=== PATIENT | female | born 1935 | race Caucasian/White ===

== ENCOUNTER 2018-08-05 23:31 | Inpatient (IN) ==
[2018-08-06] MEDS ORDERED: *HR* Promethazine 25 MG/ML VIAL IVP ONE (01:07)
[2018-08-06] MEDS ORDERED: Ondansetron 4 MG/2 ML VIAL IVP PRN (01:36)
[2018-08-06] MEDS ORDERED: Naloxone 0.4 MG/ML INJ IVP PRN ×2 (01:36→10:47)
[2018-08-06] MEDS ORDERED: 0.9 % Sodium Chloride 1,000 ML IVC SCH (01:45)
[2018-08-06] MEDS: Ketorolac 15 MG/ML VIAL IVP PRN ×2 (01:58→08:10)
[2018-08-06 04:56] LABS: Basophils % 0.1 %; Hematocrit 38.9 % (35.3-44.9); Hemoglobin 13.3 g/dL (11.5-15.4); Immature Granulocytes % 0.4 % (0-4); Lymphocytes # 0.3 K/mcL (0.6-4.6); Lymphocytes % 2.9 %; Mean Corpuscular HGB Conc 34.2 g/dL (31.6-35.5); Mean Corpuscular Hemoglobin 28.8 pg (28.0-33.3); Mean Corpuscular Volume 84.2 fL (83.0-100.0); Monocytes # 0.2 K/mcL (0.0-1.3); Monocytes % 2.1 %; Platelet Count 207 K/mcL (140-400); Red Blood Count 4.62 M/mcL (3.82-4.97); Red Cell Distribution Width 13.2 % (11.5-14.5); Segmented Neutrophils % 94.5 %
[2018-08-06 05:05] LABS: Albumin 3.7 g/dL (3.5-5.7); Albumin/Globulin Ratio 1.4 (1.1-2.2); Bilirubin,Total 1.3 mg/dL (0.3-1.0); Globulin 2.7 g/dL (2.4-3.5); Potassium 3.4 mEq/L (3.5-5.1); Total Protein 6.4 g/dL (6.4-8.9)
[2018-08-06 05:20] LABS: INR 1.3
[2018-08-06 05:22] LABS: Activated Partial Thrombo Time 36.5 Seconds (26.0-36.0)
[2018-08-06 05:30] LABS: Platelet Estimate Normal (Normal)
[2018-08-06] MEDS ORDERED: Acetaminophen 325 MG TABLET PO ONE (05:41)
--- NOTE | 2018-08-06 06:04 | Internal Med History&Physical ---
Date of Encounter: 08/06/18 Time of Encounter: 06:02 Internal Medicine - H&P: HPI Chief complaint: Left flank pain History of present illness: Ms. James is a pleasant 82 year old female with a past medical history of hypertension who initially presented to [facility] after developing a left flank pain earlier yesterday. Patient states that she was in her usual state of health, was getting her hair done when she suddenly developed left-sided flank pain described as sharp, 8 out of 10 in intensity, nonradiating, and constant. Patient was reports feeling feverish and developed several episodes of nausea and vomiting. She denies any frequency, urinary urgency or dysuria, or blood in her urine. On initial assessment [facility] patient was afebrile and hemodynamically stable. Initial laboratory results were notable for a elevated white blood cell count of 23.2 and a creatinine of 1.42. UA was obtained which was notable only for moderate leukocyte esterase. Patient was started on IV fluids and antibiotics. CT scan of the abdomen and pelvis without contrast showed progressive severe left hydronephrosis consistent with UPJ obstruction and severe perinephric edema consistent with obstructive uropathy. 3 mm nonobstructing right renal stone was noted. Patient was subsequently transferred to [place] for urological evaluation. On my assessment, patient was lying in bed in no acute distress. She was noted to be febrile with a temperature of 103.1. Otherwise hemodynamically stable. She was not complaining of any pain at the time. Past Med Surg Social Fam HX - Past Medical History Medical history: hypertension Psychiatric history: no psych history - Past Surgical History Surgical History: appendectomy - Social History Smoking Status: Never smoker Smokeless Tobacco Status: No Alcohol use: none Drug use: none - Additional Family History Additional family history: Son with history of nephrolithiasis nephrolithiasis Internal Medicine - H&P: Meds Lutein 2 PO DAILY 08/06/18 [History] Multivitamin [Daily Multiple Vitamin] 1 each PO DAILY 08/06/18 [History] Allergy/AdvReac Type Severity Reaction Status Date / Time Penicillins [PCN] Allergy Hives Verified 08/06/18 01:54 All Systems PM: A 10-system review of systems was performed and is negative for pertinent findings except as documented above in the HPI. - Constitutional Constitutional: no chills, no fever(s), no night sweats - EENT Eyes: no change in vision, no discharge, no pain, no photophobia Ears: no ear discharge, no ear pain, no tinnitus Nose, mouth and throat: no dysphagia, no nasal discharge, no neck pain, no sore throat - Cardiovascular Cardiovascular ROS IM: no chest pain, no diaphoresis, no dyspnea, no l ightheadedness, no palpitations, no syncope - Respiratory Respiratory: no cough, no dyspnea, no wheezing, no excessive phlegm production - Gastrointestinal Gastrointestinal: no abdominal pain, no diarrhea, no hematemesis, no hematochezia, no melena, no nausea, no vomiting - Genitourinary Genitourinary: no change in urinary stream, no dysuria, no flank pain, no hematuria - Musculoskeletal Musculoskeletal ROS IM: no numbness, no tingling - Integumentary Integumentary IM: no rash, no unusual bruising - Neurological Neurological ROS: no confusion, no convulsions, no focal weakness, no numbness, no tingling, no tremor(s) - Hematologic/Lymphatic Hematologic/Lymphatic: no easy bruising - Constitutional Vitals: Temp Pulse Resp BP Pulse Ox 103.1 F H 91 14 109/64 91 08/06/18 05:32 08/06/18 05:32 08/06/18 05:32 08/06/18 05:32 08/06/18 05:32 Exam: General: Alert and oriented 3 lying in bed in no acute distress Skin:Normal color, no rash, no lesions. HEENT:EOM, pupils equal, round and reactive. Cardiovascular:Normal S1 & S2, no rubs, murmurs or gallops. No JVD. Pulse regular. Lungs:Normal breath sounds, no wheezes or crackles. Abdomen:Soft, non-tender, no rigidity. Extremities:No deformity, no edema or tenderness, no joint swelling or clubbing. Neurological:Normal cognition and motor skills. Pulses:Carotid and radial pulses normal +2. Rest of the physical exam is non contributory Internal Med - H&P Results - Labs CBC & Chem 7: 08/06/18 04:19 08/06/18 04:19 Labs: Short CBC 08/06/18 Range/Units 04:19 WBC 11.6 H (4.3-11.1) K/mcL Hgb 13.3 (11.5-15.4) g/dL Hct 38.9 (35.3-44.9) % Plt Count 207 (140-400) K/mcL Neutrophils # 11.0 H (1.6-8.9) K/mcL BMP 08/06/18 04:19 Sodium 135 L Potassium 3.4 L Chloride 102 Carbon Dioxide 19 L BUN 25 H Creatinine 1.45 H Glucose 114 H Calcium 9.0 Liver Function 08/06/18 Range/Units 04:19 Total Bilirubin 1.3 H (0.3-1.0) mg/dL AST 27 (13-39) Units/L ALT 24 (7-52) Units/L Alkaline Phosphatase 109 H (34-104) Units/L Albumin 3.7 (3.5-5.7) g/dL - Assessment and Plan (1) Hydronephrosis Current Visit: Yes Status: Acute Assessment and plan: Patient presents with left-sided sharp pain associated with fever, nausea and vo miting. Found to have an elevated white blood cell count of 23. CT scan of the abdomen/pelvis showed progressive severe left hydronephrosis consistent with UPJ obstruction. There is severe left perinephric edema consistent with obstructive uropathy forniceal rupture cannot be excluded. Creatinine 1.42. Unclear what patient's baseline is as we have no previous records. 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 -Follow up urology recommendations (3) Sepsis Current Visit: Yes Status: Acute Assessment and plan: Patient presents with 3 of 4 sirs criteria. Patient otherwise hemodynamically stable. -Continue with supportive fluids -Continue antibiotics -Follow blood cultures Qualifiers: Sepsis type: sepsis due to unspecified organism Qualified Code(s): A41.9 - Sepsis, unspecified organism (4) Elevated serum creatinine Current Visit: Yes Status: Acute Assessment and plan: Elevated serum creatinine of 1.45. No previous records to determine patient's baseline. Possibly secondary to obstructive uropathy as noted above. -Continue IV fluids -Follow up urology recommendations (5) Hypertension Current Visit: Yes Status: Acute Assessment and plan: Hypertension. Blood pressure soft. We will hold any antihypertensives for now. Qualifiers: Hypertension type: essential hypertension Qualified Code(s): I10 - Essential (primary) hypertension (6) DVT prophylaxis Current Visit: Yes Status: Acute - Time Spent With Patient Total time spent is greater than 50% in coordination of care (as documented) at patient's floor/unit and/or counseling patient:
--- NOTE | 2018-08-06 07:56 | Urology - Consult Note ---
Date of Encounter: 08/06/18 Time of Encounter: 07:54 - Assessment and Plan (1) Hydronephrosis Current Visit: Yes Status: Acute Assessment and plan: 82-year-old woman with a left ureteropelvic junction obstruction. She has been admitted for IV antibiotics. I reviewed her films today. Recommend proceeding with a cystoscopy and left ureteral stent placement. She was informed of the risks of the procedure including but not limited to bleeding, infection, injury to other structures, need for further procedures, stent irritation, ureteral perforation, need for nephrostomy tube, need for open repair, risks unforeseen, and the risk of anesthesia. She is willing to proceed. Qualifiers: Hydronephrosis type: with ureteropelvic junction obstruction Qualified Code(s): Q62.11 - Congenital occlusion of ureteropelvic junction (2) Nephrolithiasis Current Visit: Yes Status: Acute Assessment and plan: She has a small right renal stone. This does not require surgery at this time as it is not obstructing. We will monitor for now. (3) Obstructive uropathy Current Visit: Yes Status: Acute (4) Sepsis Current Visit: Yes Status: Acute Assessment and plan: She has developed a fever. We will continue her on IV antibiotics. We will maximally drain her kidney with a stent. Appreciate internal medicine support. Qualifiers: Sepsis type: sepsis due to unspecified organism Qualified Code(s): A41.9 - Sepsis, unspecified organism Urology CN:HPI Consult date: 08/06/18 Reason for consult Urology: Hydronephrosis Requesting physician: Richard Barahona History of present illness: 82-year-old woman presents with concern for fevers, chills, and left flank pain. She began to develop left flank pain yesterday. The pain was sharp and severe. It was located left side and radiated to the groin. She came to an outside emergency department. A CT scan was obtained which showed concern for left hydronephrosis. There is no evidence of stone on the left side. She does have a small right renal stone. She had a low grade temperature at the outside hospital and was transferred to [facility]. She had a temperature upon presentation [place], but I was not notified until this morning of her ongoing fever. This morning, she is still having some chills. A Trujillo catheter is in place. I reviewed her CT scan and outside hospital records. Past Med Surg Social Fam HX - Past Medical History Medical history: hypertension Psychiatric history: no psych history - Past Surgical History Surgical History: appendectomy - Social History Smoking Status: Never smoker Smokeless Tobacco Status: No Alcohol use: none Drug use: none - Family History Son Hx Family Genitourinary Disorders: Yes (Kidney stones) Medications and Allergies Lutein 2 PO DAILY 08/06/18 [History] Multivitamin [Daily Multiple Vitamin] 1 each PO DAILY 08/06/18 [History] Allergy/AdvReac Type Severity Reaction Status Date / Time Penicillins [PCN] Allergy Hives Verified 08/06/18 01:54 Review of Systems - Constitutional chills, fever(s) - EENT Nose, mouth and throat: no dizziness - Cardiovascular no chest pain - Respiratory no dyspnea - Gastrointestinal nausea, no vomiting - Genitourinary Genitourinary: flank pain, no hematuria - Musculoskeletal no back pain - Integumentary no erythema, no rash - Neurological no weakness - Psychiatric no suicidal ideation - Hematologic/Lymphatic no easy bleeding - Allergic/Immunologic no wheezing Exam Initial Vital Signs Temp Pulse Resp BP Pulse Ox 98.4 F 80 15 153/72 94 08/06/18 01:06 08/06/18 01:06 08/06/18 01:06 08/06/18 01:06 08/06/18 01:06 - General physical appearance Present: well developed, well nourished, no distress - Eyes Absent: icteric - ENT Present: normal nares - Neck Present: trachea midline - Respiratory Present: normal respiratory effort - Cardiovascular Cardiovascular exam IM: RRR - Abdomen Abdomen: Present: soft, tender (Mild left flank tenderness) - Integumentary Present: no rash - Neurologic Present: normal coordination - Musculoskeletal Present: other (Normal posture) Urology Results - Labs 08/06/18 04:19 08/06/18 04:19 Abnormal lab results WBC 11.6 K/mcL (4.3-11.1) H 08/06/18 04:19 Neutrophils # 11.0 K/mcL (1.6-8.9) H 08/06/18 04:19 Lymphocytes # 0.3 K/mcL (0.6-4.6) L 08/06/18 04:19 PT 15.0 Seconds (9.4-12.1) H 08/06/18 04:19 APTT 36.5 Seconds (26.0-36.0) H 08/06/18 04:19 Sodium 135 mEq/L (136-145) L 08/06/18 04:19 Potassium 3.4 mEq/L (3.5-5.1) L 08/06/18 04:19 Carbon Dioxide 19 mEq/L (23-29) L 08/06/18 04:19 BUN 25 mg/dL (8-23) H 08/06/18 04:19 Creatinine 1.45 mg/dL (0.60-1.20) H 08/06/18 04:19 Est GFR ( Amer) 42 (> 60) L 08/06/18 04:19 Est GFR (Non-Af Amer) 34 (> 60) L 08/06/18 04:19 Glucose 114 mg/dL (70-105) H 08/06/18 04:19 Total Bilirubin 1.3 mg/dL (0.3-1.0) H 08/06/18 04:19 Alkaline Phosphatase 109 Units/L (34-104) H 08/06/18 04:19 Diabetes panel 08/06/18 Range/Units 04:19 Sodium 135 L (136-145) mEq/L Potassium 3.4 L (3.5-5.1) mEq/L Chloride 102 (98-107) mEq/L Carbon Dioxide 19 L (23-29) mEq/L BUN 25 H (8-23) mg/dL Creatinine 1.45 H (0.60-1.20) mg/dL Glucose 114 H (70-105) mg/dL Calcium 9.0 (8.6-10.3) mg/dL AST 27 (13-39) Units/L ALT 24 (7-52) Units/L Alkaline Phosphatase 109 H (34-104) Units/L Albumin 3.7 (3.5-5.7) g/dL Calcium panel 08/06/18 Range/Units 04:19 Calcium 9.0 (8.6-10.3) mg/dL Albumin 3.7 (3.5-5.7) g/dL Pituitary panel 08/06/18 Range/Units 04:19 Sodium 135 L (136-145) mEq/L Potassium 3.4 L (3.5-5.1) mEq/L Chloride 102 (98-107) mEq/L Carbon Dioxide 19 L (23-29) mEq/L BUN 25 H (8-23) mg/dL Creatinine 1.45 H (0.60-1.20) mg/dL Glucose 114 H (70-105) mg/dL Calcium 9.0 (8.6-10.3) mg/dL Adrenal panel 08/06/18 Range/Units 04:19 Sodium 135 L (136-145) mEq/L Potassium 3.4 L (3.5-5.1) mEq/L Chloride 102 (98-107) mEq/L Carbon Dioxide 19 L (23-29) mEq/L BUN 25 H (8-23) mg/dL Creatinine 1.45 H (0.60-1.20) mg/dL Glucose 114 H (70-105) mg/dL Calcium 9.0 (8.6-10.3) mg/dL Total Bilirubin 1.3 H (0.3-1.0) mg/dL AST 27 (13-39) Units/L ALT 24 (7-52) Units/L Alkaline Phosphatase 109 H (34-104) Units/L Albumin 3.7 (3.5-5.7) g/dL All other labs normal. - Imaging CT scan - abdomen: report reviewed, image reviewed CT scan - pelvis: report reviewed, image reviewed Consult Discharge Plan - Plan Referrals: Lino Green DO [Primary Care Provider] -
[2018-08-06] MEDS ORDERED: Dextrose Gel 15 GM/37.5 ML TUBE PO PRN ×4 (08:27→10:47)
[2018-08-06] MEDS ORDERED: D5% in Water 1,000 ML IVC PRN ×2 (08:27→10:47)
[2018-08-06] MEDS ORDERED: *HR* Dextrose 50 % in Water (Syg) 50 ML SYRINGE IVP PRN ×2 (08:27→10:47)
[2018-08-06] MEDS ORDERED: Isovue-300 50 ML VIAL ONE (08:28)
[2018-08-06] MEDS ORDERED: D5% in Lactated Ringers 1,000 ML IVC SCH (08:30)
--- NOTE | 2018-08-06 08:54 | Anesthesia Evaluation PreOp ---
Date of Encounter: 08/06/18 Time of Encounter: 08:51 - Past History Planned Operation: CYSTO, LEFT URETERIC TONE Cardiac History: HTN Pulmonary History: Denies Any Significant HX [employer] History: Denies Any Significant HX Other Medical History: Renal (Right renal stones, left hydronephrosis, MATTHEW), Oth er (SEPSIS, COMPENSATED SEPTIC SHOCK) Anesthesia History: No Prior Anesthetic Complications, Past Anesthesia Alcohol Use: none Drug use: none Medications and Allergies Lutein 2 PO DAILY 08/06/18 [History] Multivitamin [Daily Multiple Vitamin] 1 each PO DAILY 08/06/18 [History] Allergy/AdvReac Type Severity Reaction Status Date / Time Penicillins [PCN] Allergy Hives Verified 08/06/18 01:54 - Meds/Allergy Pre-op Review Medications Reviewed: Yes Allergies Reviewed: Yes Anesthesia Results - Labs 08/06/18 04:19 08/06/18 04:19 Laboratory Tests 08/06/18 08/06/18 04:19 06:08 Est GFR (Non-Af Amer) 34 L Lactic Acid 2.1 Total Bilirubin 1.3 H Anesthesia Exam Vital Signs/O2 Sat/Glucose, Most Recent Temp Pulse Resp BP Pulse Ox 98.7 F 92 16 94/57 92 08/06/18 08:23 08/06/18 08:23 08/06/18 06:25 08/06/18 06:25 08/06/18 08:23 Blood Glucose* 123 Weight: 78 KG - BMI 34 NPO (# of Hours): 8 - HEENT Mallampati: I Teeth: Normal Oral Opening: Greater than 3 - Cardiac Rhythm: Regular - Pulmonary Breath Sounds: bilateral Clear Respiratory Effort: Symmetrical Anesthesia Assess/Plan ASA Score: 3, E Anesthetic Plan: General Monitoring Plan: Standard Monitors Recovery Plan: PACU
[2018-08-06] MEDS ORDERED: cefTRIAXone 1,000 MG in Water for inj. (sterile) 20 ML 10 ML IVPB ONE (09:00)
[2018-08-06] MEDS ORDERED: *HR* Vasopressin 20 UNIT/ML VIAL ONE (09:02)
[2018-08-06] MEDS ORDERED: *HR* Succinylcholine 200 MG/10 ML VIAL IVP ONE (09:11)
[2018-08-06] MEDS ORDERED: Ondansetron 4 MG/2 ML VIAL ONE (09:30)
[2018-08-06] MEDS ORDERED: Lidocaine -MPF 2% 2 ML VIAL ONE (09:30)
[2018-08-06] MEDS ORDERED: *HR* FentaNYL (PF) 100 MCG/2 ML VIAL ONE (09:30)
[2018-08-06] MEDS ORDERED: *HR* Propofol 200 MG/20 ML VIAL IVP ONE (09:30)
[2018-08-06] MEDS ORDERED: Dexamethasone 4 MG/ML VIAL ONE (09:30)
--- NOTE | 2018-08-06 09:47 | Operative Note ---
Date of procedure: 08/06/18 Pre-op diagnosis: Left ureteropelvic junction obstruction, urinary tract infection, sepsis Post-op diagnosis: same Procedure: Cystoscopy, left retrograde program, left ureteral stent placement Implants: 6-[place] by 24 cm double-J stent Complications: None Anesthesia: GETA Surgeon: Juan Daniel Isaac Was there an assistant center director present: No Estimated blood loss (cc): 0 Specimen: none Condition: stable Disposition: PACU Procedure in Detail: Indications: Janeth is an 82-year-old woman who has a history of left flank pain and fever. She had a CT which showed left hydronephrosis consistent with a left ureteropelvic junction obstruction. She elected to undergo a cystoscopy and left ureteral stent placement. She was aware of the risks of the procedure including but not limited to bleeding, infection, injury to other structures, need for further procedures, stent irritation, need for nephrostomy tube, need for open repair, risks otherwise unforeseen, and the risk of anesthesia. She is willing to proceed. Procedure in Detail: After informed consent was obtained the patient was brought back to the operating room and placed in supine position. A time out was performed. General anesthesia was administered and a laryngeal mask airway was placed. She was then placed in the lithotomy position. She was prepped and draped in the usual sterile fashion. Cystoscopy was performed. The anterior urethra was normal. There was no evidence of bladder tumors. The ureteral orifices were in the normal orthotopic position. There was no duplication of the ureteral orifices. The open-ended catheter was placed in the left ureteral orifice. A retrograde pyelogram was performed. This showed narrowing at the ureteropelvic junction with a very distended left renal pelvis. There was no filling defect noted in the ureter. A Zip wire was placed in the ureteral catheter. The wire was then brought up into the kidney under fluoroscopic guidance. A 6 [place] by 26cm JJ stent was then placed. The dangle strings were removed. The bladder was drained with a Trujillo catheter. Good curls were seen in the kidney and the bladder. The patient was then awakened from general anesthesia and brought to recovery room in good condition. All sponge, needle, and instrument counts were correct.
[2018-08-06] MEDS ORDERED: *HR* OxyCODONE Immed Rel 5 MG TABLET PO PRN (09:55)
[2018-08-06] MEDS ORDERED: Ondansetron 4 MG/2 ML VIAL IVP ONE (09:55)
[2018-08-06] MEDS ORDERED: *HR* Promethazine 25 MG/ML VIAL IVP PRN (09:55)
[2018-08-06] MEDS ORDERED: *HR* HYDROmorphone (PF) 1 MG/ML SYRINGE IVP PRN (09:55)
[2018-08-06] MEDS ORDERED: Acetaminophen IV 1,000 MG/100 ML INFUS..BTL IVPB ONE (09:55)
[2018-08-06] MEDS ORDERED: *HR* Meperidine 25 MG/ML SYRINGE IVP PRN (09:55)
[2018-08-06] MEDS ORDERED: *HR* HYDROcodone/Acet 5/325 mg TABLET PO PRN (10:47)
[2018-08-06] MEDS ORDERED: Acetaminophen 325 MG TABLET PO PRN (10:47)
[2018-08-06] MEDS ORDERED: Ketorolac 15 MG/ML VIAL IVP PRN (10:47)
[2018-08-06] MEDS ORDERED: Insulin LISPRO 300 UNITS/3 ML VIAL SQ SCH ×2 (12:00)
--- NOTE | 2018-08-06 15:43 | Event Note ---
Date of Encounter: 08/06/18 Time of Encounter: 15:42 I have seen and evaluated the patient bedside. Patient admitted for hydronephrosis status post Cystoscopy, left retrograde program, left ureteral stent placement. We will continue IV fluids and IV antibiotics. We will continue to follow.
--- NOTE | 2018-08-06 18:11 | Anesthesia Evaluation Post Op ---
Date of Encounter: 08/06/18 Time of Encounter: 11:19 - Discharge PostOp Status: Transfer Patient to floor (Patient's vital signs have been reviewed. Patient is stable postoperatively and has adequately recovered from anesthesia. Patient is determined to have stable airway patency and respiratory function including respiratory rate and oxygen saturation. Patient has a stable heart rate, blood pressure and adequate hydration. Patients mental status is acceptable. Patients temperature is appropriate. Pain and nausea are adequately controlled.)
[2018-08-06] MEDS: D5% in Lactated Ringers 1,000 ML IVC SCH (21:44)
[2018-08-07 04:01] LABS: Hematocrit 34.8 % (35.3-44.9); Hemoglobin 11.9 g/dL (11.5-15.4); Immature Platelets 6.1 % (1.1-6.1); Mean Corpuscular HGB Conc 34.2 g/dL (31.6-35.5); Mean Corpuscular Volume 84.9 fL (83.0-100.0); Red Blood Count 4.1 M/mcL (3.82-4.97)
[2018-08-07 04:11] LABS: Calcium 8.6 mg/dL (8.6-10.3); Potassium 3.4 mEq/L (3.5-5.1)
[2018-08-07 05:15] LABS: Basophils % 0.2 %
[2018-08-07 05:16] LABS: Basophils # 0.1 K/mcL (0.0-0.2); Hematocrit 33.9 % (35.3-44.9); Hemoglobin 11.7 g/dL (11.5-15.4); Immature Granulocytes % 3.3 % (0-4); Lymphocytes # 1.4 K/mcL (0.6-4.6); Lymphocytes % 4.6 %; Mean Corpuscular HGB Conc 34.5 g/dL (31.6-35.5); Mean Corpuscular Hemoglobin 28.5 pg (28.0-33.3); Mean Corpuscular Volume 82.5 fL (83.0-100.0); Mean Platelet Volume 10.5 fL (9.4-12.4); Monocytes # 1.2 K/mcL (0.0-1.3); Monocytes % 3.9 %; Neutrophils # 26.3 K/mcL (1.6-8.9); Platelet Count 171 K/mcL (140-400); Red Blood Count 4.11 M/mcL (3.82-4.97); Red Cell Distribution Width 14.1 % (11.5-14.5)
[2018-08-07 05:32] LABS: Albumin/Globulin Ratio 1.2 (1.1-2.2); Bilirubin,Total 0.4 mg/dL (0.3-1.0); Calcium 8.5 mg/dL (8.6-10.3); Globulin 2.6 g/dL (2.4-3.5); Potassium 3.4 mEq/L (3.5-5.1); Total Protein 5.6 g/dL (6.4-8.9)
[2018-08-07 05:38] LABS: Platelet Estimate Normal (Normal)
[2018-08-07 05:39] LABS: Reactive Lymphocytes Present (Not Present)
[2018-08-07] MEDS ORDERED: cefTRIAXone 1,000 MG in Water for inj. (sterile) 20 ML 10 ML IVP SCH (09:00)
--- NOTE | 2018-08-07 09:17 | Urology Progress Note ---
Date of Encounter: 08/07/18 Time of Encounter: 09:16 - Assessment and Plan (1) Hydronephrosis Current Visit: Yes Status: Acute Assessment and plan: Postop day #1 status post cystoscopy and left renal stent placement. She has a left ureteral pelvic junction obstruction. Plan #1: Continue Trujillo catheter today. #2: Appreciate internal medicine support. Continue broad-spectrum antibiotics until urine and blood cultures return. #3: Continue inpatient stay. Qualifiers: Hydronephrosis type: with ureteropelvic junction obstruction Qualified Code(s): Q62.11 - Congenital occlusion of ureteropelvic junction (2) Nephrolithiasis Current Visit: Yes Status: Acute (3) Obstructive uropathy Current Visit: Yes Status: Acute (4) Sepsis Current Visit: Yes Status: Acute Qualifiers: Sepsis type: sepsis due to unspecified organism Qualified Code(s): A41.9 - Sepsis, unspecified organism Progress Note Narrative: Postop day #1 status post cystoscopy and left ureteral stent placement. She feels better today. Blood cultures are growing out gram-positive rods and gram-negative rods. She has been afebrile overnight. Heart rate and blood pressure are stable. Her urine is light pink. Objective Initial Vital Signs Temp Pulse Resp BP Pulse Ox 98.4 F 80 15 153/72 94 08/06/18 01:06 08/06/18 01:06 08/06/18 01:06 08/06/18 01:06 08/06/18 01:06 - General physical appearance Present: well developed, well nourished, no distress - Respiratory Present: normal respiratory effort - Genitourinary Urine Appearance: Present: Clear (Clear to light pink) - Labs 08/07/18 05:02 08/07/18 05:02 Diabetes panel 08/07/18 08/07/18 Range/Units 03:25 05:02 Sodium 136 135 L (136-145) mEq/L Potassium 3.4 L 3.4 L (3.5-5.1) mEq/L Chloride 105 106 (98-107) mEq/L Carbon Dioxide 22 L 22 L (23-29) mEq/L BUN 40 H 39 H (8-23) mg/dL Creatinine 1.73 H 1.65 H (0.60-1.20) mg/dL Glucose 131 H 128 H (70-105) mg/dL Calcium 8.6 8.5 L (8.6-10.3) mg/dL AST 32 (13-39) Units/L ALT 23 (7-52) Units/L Alkaline Phosphatase 57 (34-104) Units/L Albumin 3.0 L (3.5-5.7) g/dL Calcium panel 08/07/18 08/07/18 Range/Units 03:25 05:02 Calcium 8.6 8.5 L (8.6-10.3) mg/dL Albumin 3.0 L (3.5-5.7) g/dL Pituitary panel 08/07/18 08/07/18 Range/Units 03:25 05:02 Sodium 136 135 L (136-145) mEq/L Potassium 3.4 L 3.4 L (3.5-5.1) mEq/L Chloride 105 106 (98-107) mEq/L Carbon Dioxide 22 L 22 L (23-29) mEq/L BUN 40 H 39 H (8-23) mg/dL Creatinine 1.73 H 1.65 H (0.60-1.20) mg/dL Glucose 131 H 128 H (70-105) mg/dL Calcium 8.6 8.5 L (8.6-10.3) mg/dL Adrenal panel 08/07/18 08/07/18 Range/Units 03:25 05:02 Sodium 136 135 L (136-145) mEq/L Potassium 3.4 L 3.4 L (3.5-5.1) mEq/L Chloride 105 106 (98-107) mEq/L Carbon Dioxide 22 L 22 L (23-29) mEq/L BUN 40 H 39 H (8-23) mg/dL Creatinine 1.73 H 1.65 H (0.60-1.20) mg/dL Glucose 131 H 128 H (70-105) mg/dL Calcium 8.6 8.5 L (8.6-10.3) mg/dL Total Bilirubin 0.4 (0.3-1.0) mg/dL AST 32 (13-39) Units/L ALT 23 (7-52) Units/L Alkaline Phosphatase 57 (34-104) Units/L Albumin 3.0 L (3.5-5.7) g/dL Consult Discharge Plan - Plan Referrals: Lino Green DO [Primary Care Provider] -
[2018-08-07 10:25] LABS: Acinetobacter baumannii by PCR Not Detected (Not Detect); Enterococcus by PCR Not Detected (Not Detect); Staphylococcus aureus by PCR Not Detected (Not Detect); Staphylococcus by PCR Not Detected (Not Detect); Streptococcus agalactiae(B)PCR Not Detected (Not Detect); Streptococcus by PCR Not Detected (Not Detect); Streptococcus pneumoniae PCR Not Detected (Not Detect); Streptococcus pyogenes (A) PCR Not Detected (Not Detect); blaKPC Carbapenem-Resist Gene Not Detected (Not Detect)
[2018-08-07 10:26] LABS: Candida albicans by PCR Not Detected (Not Detect); Candida glabrata by PCR Not Detected (Not Detect); Candida krusei by PCR Not Detected (Not Detect); Candida parapsilosis by PCR Not Detected (Not Detect); Candida tropicalis by PCR Not Detected (Not Detect); Enterobacter cloacae Cmplx PCR Not Detected (Not Detect); Enterobacteriaceae by PCR DETECTED (Not Detect); Escherichia coli by PCR DETECTED (Not Detect); Klebsiella oxytoca by PCR Not Detected (Not Detect); Klebsiella pneumoniae by PCR Not Detected (Not Detect); Proteus by PCR Not Detected (Not Detect); Pseudomonas aeruginosa by PCR Not Detected (Not Detect); Serratia marcescens by PCR Not Detected (Not Detect)
[2018-08-07] MEDS: D5% in Lactated Ringers 1,000 ML IVC SCH ×2 (13:04→22:11)
[2018-08-07] MEDS: Ondansetron 4 MG/2 ML VIAL IVP PRN (21:26)
[2018-08-08] MEDS: D5% in Lactated Ringers 1,000 ML IVC SCH ×6 (02:45→22:41)
[2018-08-08] MEDS ORDERED: *HR* Promethazine 25 MG/ML VIAL IVP PRN (04:31)
--- NOTE | 2018-08-08 04:49 | Event Note ---
Date of Encounter: 08/08/18 Time of Encounter: 04:40 Alerted by OLI Gillespieconstruction project coordinator Nurse that pts. lab result for microbiology was incorrect. Pt. was placed on vancomycin IVPB yesterday based on lab results stating pt. had gram positive rods. Correct lab results are gram negative rods (E. coli). Vancomycin DCd and Rocephin IVPB increased to 2,000 mg Q12HR. D/t pts. current renal dysfunction, verified dosing w/Pharmacy (Rocephin not renally dosed). Dosing increased d/t pts. report of feeling much worse and WBC increasing from 11.6 to 29.9. IVP Phenergan added for nausea d/t Zofran not working. Nurse instructed to continue to monitor pt. very closely and notify me immediately of any adverse changes.
[2018-08-08 05:27] LABS: Basophils % 0.1 %; Eosinophils % 0.1 %; Hematocrit 35.3 % (35.3-44.9); Hemoglobin 12.1 g/dL (11.5-15.4); Immature Granulocytes % 2.2 % (0-4); Lymphocytes % 4.8 %; Mean Corpuscular HGB Conc 34.3 g/dL (31.6-35.5); Mean Corpuscular Hemoglobin 28.9 pg (28.0-33.3); Mean Corpuscular Volume 84.2 fL (83.0-100.0); Mean Platelet Volume 10.7 fL (9.4-12.4); Monocytes # 1.2 K/mcL (0.0-1.3); Monocytes % 5.4 %; Neutrophils # 18.4 K/mcL (1.6-8.9); Platelet Count 185 K/mcL (140-400); Red Blood Count 4.19 M/mcL (3.82-4.97); Red Cell Distribution Width 14.4 % (11.5-14.5); Segmented Neutrophils % 87.4 %
[2018-08-08] MEDS: cefTRIAXone 2,000 MG in 0.9 % Sodium Chloride Mini Bag 100 ML IVPB SCH ×2 (05:38→17:30)
[2018-08-08 05:47] LABS: Albumin/Globulin Ratio 1.1 (1.1-2.2); Bilirubin,Total 0.4 mg/dL (0.3-1.0); Calcium 8.9 mg/dL (8.6-10.3); Globulin 2.7 g/dL (2.4-3.5); Potassium 3.7 mEq/L (3.5-5.1); Total Protein 5.7 g/dL (6.4-8.9)
--- NOTE | 2018-08-08 07:41 | Urology Progress Note ---
Date of Encounter: 08/08/18 Time of Encounter: 07:40 - Assessment and Plan (1) Hydronephrosis Current Visit: Yes Status: Acute Assessment and plan: Postop day #2 status post cystoscopy and left renal stent placement. She is doing well. 1. I will remove her Truj[place] catheter today. This should allow her to ambulate a bit better. 2. Continue IV antibiotic and wait for final blood and urine cultures. 3. Continue inpatient stay for now. Appreciate internal medicine support. 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 She is having some left flank pain. She had a low-grade temperature yesterday. Blood cultures are growing out Escherichia coli. Urine is clear. Objective Initial Vital Signs Temp Pulse Resp BP Pulse Ox 98.4 F 80 15 153/72 94 08/06/18 01:06 08/06/18 01:06 08/06/18 01:06 08/06/18 01:06 08/06/18 01:06 - General physical appearance Present: well developed, well nourished, no distress - Respiratory Present: normal respiratory effort - Genitourinary Urine Appearance: Present: Clear - Labs 08/08/18 05:13 08/08/18 05:12 Diabetes panel 08/08/18 Range/Units 05:12 Sodium 136 (136-145) mEq/L Potassium 3.7 (3.5-5.1) mEq/L Chloride 105 (98-107) mEq/L Carbon Dioxide 25 (23-29) mEq/L BUN 26 H (8-23) mg/dL Creatinine 1.20 (0.60-1.20) mg/dL Glucose 120 H (70-105) mg/dL Calcium 8.9 (8.6-10.3) mg/dL AST 24 (13-39) Units/L ALT 24 (7-52) Units/L Alkaline Phosphatase 67 (34-104) Units/L Albumin 3.0 L (3.5-5.7) g/dL Calcium panel 08/08/18 Range/Units 05:12 Calcium 8.9 (8.6-10.3) mg/dL Albumin 3.0 L (3.5-5.7) g/dL Pituitary panel 08/08/18 Range/Units 05:12 Sodium 136 (136-145) mEq/L Potassium 3.7 (3.5-5.1) mEq/L Chloride 105 (98-107) mEq/L Carbon Dioxide 25 (23-29) mEq/L BUN 26 H (8-23) mg/dL Creatinine 1.20 (0.60-1.20) mg/dL Glucose 120 H (70-105) mg/dL Calcium 8.9 (8.6-10.3) mg/dL Adrenal panel 08/08/18 Range/Units 05:12 Sodium 136 (136-145) mEq/L Potassium 3.7 (3.5-5.1) mEq/L Chloride 105 (98-107) mEq/L Carbon Dioxide 25 (23-29) mEq/L BUN 26 H (8-23) mg/dL Creatinine 1.20 (0.60-1.20) mg/dL Glucose 120 H (70-105) mg/dL Calcium 8.9 (8.6-10.3) mg/dL Total Bilirubin 0.4 (0.3-1.0) mg/dL AST 24 (13-39) Units/L ALT 24 (7-52) Units/L Alkaline Phosphatase 67 (34-104) Units/L Albumin 3.0 L (3.5-5.7) g/dL Consult Discharge Plan - Plan Referrals: Lino Green DO [Primary Care Provider] -
--- NOTE | 2018-08-08 09:35 | Internal Med Progress Note ---
Hospitalist Progress Note - Encounter Date of Encounter: 08/07/18 Time of Encounter: 19:00 - Subjective Interval History: SUBJECTIVE: This is an 82-year-old woman admitted with left flank pain. 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 A stent has been placed by urology. She does not have any significant pain today. Denies nausea and vomiting. Denies abdominal pain. Trujillo catheter is draining good amounts of urine. OBJECTIVE: Skin: Free of rash and discoloration. ENMT: Oral/pharyngeal mucosa is normal in appearance. Eyes: Sclera is white. There is no discharge from eyes. Respiratory: Normal breath sounds; no crackles or wheezes. CV: Heart is regular; no gallop or murmur. GI: Abdomen is soft and not tender. There is no palpable mass or visceromegaly. : There is mild tenderness in the area of left kidney. 3 straining good amounts of urine. Neuro: There is no focal deficits. ADDITIONAL DATA: CBC shows hemoglobin of 11.7 with a WBC of 29.9 thousand. Potassium is 3.4 (the same yesterday) with creatinine of 1.65 (1.45 yesterday) and fasting glucose of 128. The rest of BMP is normal. ASSESSMENT AND PLAN: Left-sided hydronephrosis in a patient with nephrolithiasis. See notes from urology. A stent has been placed at left UPJ narrowing area. She has developed acute kidney injury and UTI/E. coli bacteremia. She got IV fluids. She is getting IV Rocephin. I will stop her IV vancomycin tomorrow. Mild hypokalemia. Likely secondary to problems mentioned above. I will give her a supplemental potassium chloride by mouth. - Exam Vitals: Temp Pulse Resp BP Pulse Ox 99.1 F 67 16 161/80 92 08/08/18 06:25 08/08/18 06:25 08/08/18 06:25 08/08/18 06:25 08/08/18 06:25 Exam: xx - Assessment and Plan (1) Hydronephrosis Current Visit: Yes Status: Acute (2) Nephrolithiasis Current Visit: Yes Status: Acute (3) MATTHEW (acute kidney injury) Current Visit: Yes Status: Acute (4) UTI (urinary tract infection) Current Visit: Yes Status: Acute (5) Hypokalemia Current Visit: Yes Status: Acute - Time Spent with Patient Total time spent is greater than 50% in coordination of care (as documented) at patient's floor/unit and/or counseling patient: Internal Medicine: Result - Labs CBC & Chem 7: 08/08/18 05:13 08/08/18 05:12 Labs: Short CBC 08/08/18 Range/Units 05:13 WBC 21.1 H (4.3-11.1) K/mcL Hgb 12.1 (11.5-15.4) g/dL Hct 35.3 (35.3-44.9) % Plt Count 185 (140-400) K/mcL Neutrophils # 18.4 H (1.6-8.9) K/mcL BMP 08/08/18 05:12 Sodium 136 Potassium 3.7 Chloride 105 Carbon Dioxide 25 BUN 26 H Creatinine 1.20 Glucose 120 H Calcium 8.9 Liver Function 08/08/18 Range/Units 05:12 Total Bilirubin 0.4 (0.3-1.0) mg/dL AST 24 (13-39) Units/L ALT 24 (7-52) Units/L Alkaline Phosphatase 67 (34-104) Units/L Albumin 3.0 L (3.5-5.7) g/dL - ABG Interpretation ABG results: PT/INR, D-dimer PT 15.0 Seconds (9.4-12.1) H 08/06/18 04:19 Consult Discharge Plan - Plan Referrals: Lino Green DO [Primary Care Provider] - (1) Hydronephrosis Qualifiers: Hydronephrosis type: unspecified Qualified Code(s): N13.30 - Unspecified hydronephrosis
[2018-08-09] MEDS: Ondansetron 4 MG/2 ML VIAL IVP PRN (03:52)
[2018-08-09] MEDS: cefTRIAXone 2,000 MG in 0.9 % Sodium Chloride Mini Bag 100 ML IVPB SCH (05:36)
--- NOTE | 2018-08-09 06:27 | Internal Med Progress Note ---
Hospitalist Progress Note - Encounter Date of Encounter: 08/08/18 Time of Encounter: 19:00 - Subjective Interval History: SUBJECTIVE: The patient feels good. Trujillo catheter has been removed. She makes urine on her own. No urinary symptoms. Denies pain in her flanks. Denies other pain. Denies dyspnea, coughing and wheezing. This is an 82-year-old woman admitted with left flank pain. 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 A stent has been placed by urology. OBJECTIVE: Skin: Free of rash and discoloration. ENMT: Oral/pharyngeal mucosa is normal in appearance. Eyes: Sclera is white. There is no discharge from eyes. Respiratory: Normal breath sounds; no crackles or wheezes. CV: Heart is regular; no gallop or murmur. GI: Abdomen is soft and not tender. There is no palpable mass or visceromegaly. : There is mild tenderness in the area of left kidney. Neuro: There is no focal deficits. ADDITIONAL DATA: CBC shows hemoglobin of 12.1 with a WBC of 21.1 thousand (29.9 thousand yesterday). Potassium is 3.7; 3.4 yesterday. Creatinine is 1.20; 1.65 yesterday. The rest of BMP is normal. ASSESSMENT AND PLAN: Left-sided hydronephrosis in a patient with nephrolithiasis. See notes from urology. A stent has been placed at left UPJ narrowing area. Her acute kidney injury has nearly subsided. She has E. coli bacteremia. Getting IV fluids. She is on IV Rocephin. Mild hypokalemia. Subsided with supplemental potassium chloride. - Exam Vitals: Temp Pulse Resp BP Pulse Ox 100.1 F H 81 15 153/72 90 08/09/18 03:30 08/09/18 03:30 08/09/18 03:30 08/09/18 03:30 08/09/18 03:30 Exam: xx - Assessment and Plan (1) Hydronephrosis Current Visit: Yes Status: Acute (2) Nephrolithiasis Current Visit: Yes Status: Acute (3) MATTHEW (acute kidney injury) Current Visit: Yes Status: Acute (4) UTI (urinary tract infection) Current Visit: Yes Status: Acute (5) Hypokalemia Current Visit: Yes Status: Acute - Time Spent with Patient Total time spent is greater than 50% in coordination of care (as documented) at patient's floor/unit and/or counseling patient: 25 - 35 minutes Plan of Care Discussed with: patient Internal Medicine: Result - Labs CBC & Chem 7: 08/08/18 05:13 08/08/18 05:12 - ABG Interpretation ABG results: PT/INR, D-dimer PT 15.0 Seconds (9.4-12.1) H 08/06/18 04:19 Consult Discharge Plan - Plan Referrals: Lino Green DO [Primary Care Provider] - ___ (1) Hydronephrosis Qualifiers: Hydronephrosis type: unspecified Qualified Code(s): N13.30 - Unspecified hydronephrosis
--- NOTE | 2018-08-09 07:54 | Urology Progress Note ---
Date of Encounter: 08/09/18 Time of Encounter: 07:52 - Assessment and Plan (1) Hydronephrosis Current Visit: Yes Status: Acute Assessment and plan: Postop day #3 status post cystoscopy and left renal stent placement. She still has fevers. Continue IV antibiotics today. I recommend awaiting for at least 24-48 hours without fever prior to discharge. Urology will follow along. Qualifiers: Hydronephrosis type: unspecified Qualified Code(s): N13.30 - Unspecified hydronephrosis (2) Nephrolithiasis Current Visit: Yes Status: Acute (3) Obstructive uropathy Current Visit: Yes Status: Acute (4) Sepsis Current Visit: Yes Status: Acute Qualifiers: Sepsis type: sepsis due to unspecified organism Qualified Code(s): A41.9 - Sepsis, unspecified organism Progress Note Narrative: She had a fever yesterday. Blood cultures are growing out gram-negative rods and Escherichia coli. Catheter was removed yesterday. She has been voiding well on her own. Objective Initial Vital Signs Temp Pulse Resp BP Pulse Ox 98.4 F 80 15 153/72 94 08/06/18 01:06 08/06/18 01:06 08/06/18 01:06 08/06/18 01:06 08/06/18 01:06 - General physical appearance Present: well developed, well nourished, no distress - Abdomen Present: soft - Labs 08/08/18 05:13 08/08/18 05:12 Consult Discharge Plan - Plan Referrals: Lino Green DO [Primary Care Provider] -
[2018-08-09] MEDS: D5% in Lactated Ringers 1,000 ML IVC SCH (11:56)
[2018-08-09 19:55] LABS: Bilirubin,Urine Negative (Negative); Blood,Urine Large (Negative); Clarity,Urine Cloudy (Clear); Color,Urine Yellow (Yellow); Glucose,Urine (UA) Normal (Normal); Ketones,Urine Negative (Negative); Leukocyte Esterase,Urine Large (Negative); Nitrite,Urine Negative (Negative); Protein,Urine 100 mg/dL (Neg-Trace); Specific Gravity,Urine 1.018 (1.010-1.025); Urobilinogen,Urine Normal (Normal)
[2018-08-09 19:57] LABS: Hyaline Casts,Urine None Seen per lpf (None-Few); RBC,Urine 30-50 per hpf (0-3); Squamous Epithelial Cell,Urine Many per lpf (None-Few); WBC,Urine 30-50 per hpf (0-3)
[2018-08-09 20:11] LABS: Bacteria,Urine Few per hpf (None-Few); Transitional Epi Cells,Urine Few per hpf (None-Few)
[2018-08-10] MEDS: cefTRIAXone 2,000 MG in Water for inj. (sterile) 20 ML 20 ML IVP SCH (05:52)
--- NOTE | 2018-08-10 05:57 | Internal Med Progress Note ---
Hospitalist Progress Note - Encounter Date of Encounter: 08/09/18 Time of Encounter: 19:00 - Subjective Interval History: SUBJECTIVE: The patient feels good. Trujillo catheter has been removed. She makes urine on her own. No urinary symptoms. She continues to have mild grade fever. He seems to be lower than yesterday. Denies pain in her flanks. Denies other pain. Denies dyspnea, coughing and wheezing. This is an 82-year-old woman admitted with left flank pain. 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 A stent has been placed by urology. OBJECTIVE: Skin: Free of rash and discoloration. ENMT: Oral/pharyngeal mucosa is normal in appearance. Eyes: Sclera is white. There is no discharge from eyes. Respiratory: Normal breath sounds; no crackles or wheezes. CV: Heart is regular; no gallop or murmur. GI: Abdomen is soft and not tender. There is no palpable mass or visceromegaly. : There is mild tenderness in the area of left kidney. Neuro: There is no focal deficits. ADDITIONAL DATA (from yesterday): CBC shows hemoglobin of 12.1 with a WBC of 21.1 thousand (29.9 thousand yesterday). Potassium is 3.7; 3.4 yesterday. Creatinine is 1.20; 1.65 yesterday. The rest of BMP is normal. ASSESSMENT AND PLAN: Left-sided hydronephrosis in a patient with nephrolithiasis. See notes from urology. A stent has been placed at left UPJ narrowing area. Her acute kidney injury has nearly subsided. She has E. coli bacteremia. Getting IV fluids. She is on IV Rocephin. Mild hypokalemia. Subsided with supplemental potassium chloride. Disposition: I am repeating her CBC tomorrow. Awaiting her to be afebrile for 24-36 hours before the discharge. - Exam Vitals: Temp Pulse Resp BP Pulse Ox 99.0 F 77 18 156/77 92 08/10/18 03:21 08/10/18 03:21 08/10/18 03:21 08/10/18 03:21 08/10/18 03:21 Exam: xx - Assessment and Plan (1) Hydronephrosis Current Visit: Yes Status: Acute (2) Nephrolithiasis Current Visit: Yes Status: Acute (3) MATTHEW (acute kidney injury) Current Visit: Yes Status: Acute (4) UTI (urinary tract infection) Current Visit: Yes Status: Acute (5) Hypokalemia Current Visit: Yes Status: Acute - Time Spent with Patient Total time spent is greater than 50% in coordination of care (as documented) at patient's floor/unit and/or counseling patient: 25 - 35 minutes Plan of Care Discussed with: patient Internal Medicine: Result - Labs CBC & Chem 7: 08/08/18 05:13 08/08/18 05:12 Labs: Urine 08/09/18 Range/Units 19:46 Urine Color Yellow (Yellow) Urine Clarity Cloudy A (Clear) Urine pH 6.0 (5.0-8.0) pH Units Ur Specific [place] 1.018 (1.010-1.025) Urine Protein 100 H (Neg-Trace) mg/dL Urine Glucose (UA) Normal (Normal) mg/dL - ABG Interpretation ABG results: PT/INR, D-dimer PT 15.0 Seconds (9.4-12.1) H 08/06/18 04:19 Consult Discharge Plan - Plan Referrals: Lino Green DO [Primary Care Provider] - (1) Hydronephrosis Qualifiers: Hydronephrosis type: unspecified Qualified Code(s): N13.30 - Unspecified hydronephrosis
--- NOTE | 2018-08-10 07:13 | Urology Progress Note ---
Date of Encounter: 08/10/18 Time of Encounter: 07:11 - Assessment and Plan (1) Hydronephrosis Current Visit: Yes Status: Acute Assessment and plan: Postop day #4 status post cystoscopy and left renal stent placement. Temperature curve has improved. Continue IV antibiotics today. Consider discharge home today if okay per primary team. Urine cultures are growing out pansensitive Escherichia coli. Okay to transition to oral medication. Please call with questions. Qualifiers: Hydronephrosis type: unspecified Qualified Code(s): N13.30 - Unspecified hydronephrosis (2) Nephrolithiasis Current Visit: Yes Status: Acute (3) Obstructive uropathy Current Visit: Yes Status: Acute (4) Sepsis Current Visit: Yes Status: Acute Qualifiers: Sepsis type: sepsis due to unspecified organism Qualified Code(s): A41.9 - Sepsis, unspecified organism Progress Note Narrative: Doing well after cystoscopy and left ureteral stent placement. She has had a low-grade temperature this morning, but it is improving. She feels quite well. Objective Initial Vital Signs Temp Pulse Resp BP Pulse Ox 98.4 F 80 15 153/72 94 08/06/18 01:06 08/06/18 01:06 08/06/18 01:06 08/06/18 01:06 08/06/18 01:06 - General physical appearance Present: well developed, well nourished, no distress - Respiratory Present: normal respiratory effort - Abdomen Present: soft - Labs 08/08/18 05:13 08/08/18 05:12 Consult Discharge Plan - Plan Referrals: Lino Green DO [Primary Care Provider] -
[2018-08-10 07:17] LABS: Basophils # 0.1 K/mcL (0.0-0.2); Basophils % 0.6 %; Eosinophils # 0.1 K/mcL (0.0-0.6); Eosinophils % 0.8 %; Hematocrit 36.8 % (35.3-44.9); Hemoglobin 12.4 g/dL (11.5-15.4); Immature Granulocytes % 2.1 % (0-4); Lymphocytes # 1.6 K/mcL (0.6-4.6); Lymphocytes % 10.1 %; Mean Corpuscular HGB Conc 33.7 g/dL (31.6-35.5); Mean Corpuscular Hemoglobin 28.7 pg (28.0-33.3); Mean Corpuscular Volume 85.2 fL (83.0-100.0); Mean Platelet Volume 10.8 fL (9.4-12.4); Monocytes # 1.8 K/mcL (0.0-1.3); Monocytes % 11.8 %; Neutrophils # 11.5 K/mcL (1.6-8.9); Platelet Count 233 K/mcL (140-400); Red Blood Count 4.32 M/mcL (3.82-4.97); Red Cell Distribution Width 14.2 % (11.5-14.5); Segmented Neutrophils % 74.6 %
[2018-08-10 07:35] LABS: BUN/Creatinine Ratio 15 (6-26); Blood Urea Nitrogen 13 mg/dL (8-23); Calcium 8.7 mg/dL (8.6-10.3); Carbon Dioxide 25 mEq/L (23-29); Chloride 106 mEq/L (98-107); Glucose 100 mg/dL (70-105); Osmolality,Calculated 286 (280-300); Potassium 4.1 mEq/L (3.5-5.1); Sodium 138 mEq/L (136-145); eGFR For Non-African Americans > 60 (> 60)
--- NOTE | 2018-08-10 16:58 | Internal Med Progress Note ---
Hospitalist Progress Note - Encounter Date of Encounter: 08/10/18 Time of Encounter: 16:55 - Subjective Interval History: I have seen and evaluated the patient at bedside. patient reports she is feeling much better today. denies abdominal pain, nausea or vomiting. - Exam Vitals: Temp Pulse Resp BP Pulse Ox 98.4 F 70 14 145/73 94 08/10/18 14:27 08/10/18 14:27 08/10/18 14:27 08/10/18 14:27 08/10/18 14:27 Exam: Vitals: reviewed General: Alert and oriented x4. In no distress Cardiovascular: RRR, normal S1 & S2, no rubs, murmurs or gallops. Lungs: CTA b/l, no wheezes or crackles. Abdomen: Obese, soft, non-tender, no rigidity. Extremities: No deformity, no edema or tenderness, no joint swelling or clubbing. Neurological: Normal cognition and motor skills. Rest of the physical exam is non contributory - Assessment and Plan (1) Bacteremia Current Visit: Yes Status: Acute Assessment and Plan: blood culture 2 bottles, grew valdez-sensitive E.coli. will continue IV antibiotics x24 more hours. on ceftriaxone 1gm/IV daily if patient remains afebrile for the next 24 hours will discharge home (2) UTI (urinary tract infection) Current Visit: Yes Status: Acute Assessment and Plan: patient has received 4 days of IV antibiotics. (3) Nephrolithiasis Current Visit: Yes Status: Acute Assessment and Plan: patient with hydronephrosis s/p stent placements. recommended outpatient f/u with urology (4) Hydronephrosis Current Visit: Yes Status: Acute Assessment and Plan: as above (5) MATTHEW (acute kidney injury) Current Visit: Yes Status: Resolved (6) Hypokalemia Current Visit: Yes Status: Resolved (7) Hypertension Current Visit: Yes Status: Chronic Assessment and Plan: BP controlled on losartan DVT Prophylaxis: started on heparin subq - Summary of Assessment and Plan Summary of Assessment and Plan: bacteremia. if patient remains afebrile in the 24 hours will discharge home tomorrow morning. - Time Spent with Patient Total time spent is greater than 50% in coordination of care (as documented) at patient's floor/unit and/or counseling patient: Greater than 35 minutes (40) Plan of Care Discussed with: patient (and the nurse.) Internal Medicine: Result - Labs CBC & Chem 7: 08/10/18 06:32 08/10/18 06:32 Labs: Short CBC 08/10/18 Range/Units 06:32 WBC 15.4 H (4.3-11.1) K/mcL Hgb 12.4 (11.5-15.4) g/dL Hct 36.8 (35.3-44.9) % Plt Count 233 (140-400) K/mcL Neutrophils # 11.5 H (1.6-8.9) K/mcL BMP 08/10/18 06:32 Sodium 138 Potassium 4.1 Chloride 106 Carbon Dioxide 25 BUN 13 Creatinine 0.85 Glucose 100 Calcium 8.7 Urine 08/09/18 Range/Units 19:46 Urine Color Yellow (Yellow) Urine Clarity Cloudy A (Clear) Urine pH 6.0 (5.0-8.0) pH Units Ur Specific [place] 1.018 (1.010-1.025) Urine Protein 100 H (Neg-Trace) mg/dL Urine Glucose (UA) Normal (Normal) mg/dL - ABG Interpretation ABG results: PT/INR, D-dimer PT 15.0 Seconds (9.4-12.1) H 08/06/18 04:19 Consult Discharge Plan - Plan Referrals: Lino Green DO [Primary Care Provider] - (2) UTI (urinary tract infection) Qualifiers: Urinary tract infection type: site unspecified (4) Hydronephrosis Qualifiers: Hydronephrosis type: unspecified Qualified Code(s): N13.30 - Unspecified hydronephrosis (7) Hypertension Qualifiers: Hypertension type: essential hypertension Qualified Code(s): I10 - Essential (primary) hypertension
[2018-08-10] MEDS: *HR* Heparin 5,000 UNIT/ML VIAL SQ SCH (17:51)
[2018-08-11] MEDS: *HR* Heparin 5,000 UNIT/ML VIAL SQ SCH (05:13)
[2018-08-11] MEDS: cefTRIAXone 2,000 MG in Water for inj. (sterile) 20 ML 20 ML IVP SCH (05:13)
[2018-08-11 05:30] LABS: Basophils # 0.2 K/mcL (0.0-0.2); Basophils % 1.1 %; Eosinophils # 0.2 K/mcL (0.0-0.6); Eosinophils % 1.4 %; Hematocrit 37.7 % (35.3-44.9); Hemoglobin 12.5 g/dL (11.5-15.4); Immature Granulocytes % 5.1 % (0-4); Lymphocytes # 2.2 K/mcL (0.6-4.6); Lymphocytes % 15.9 %; Mean Corpuscular HGB Conc 33.2 g/dL (31.6-35.5); Mean Corpuscular Hemoglobin 28.3 pg (28.0-33.3); Mean Corpuscular Volume 85.3 fL (83.0-100.0); Mean Platelet Volume 10.5 fL (9.4-12.4); Monocytes # 1.9 K/mcL (0.0-1.3); Monocytes % 13.6 %; Neutrophils # 8.8 K/mcL (1.6-8.9); Platelet Count 278 K/mcL (140-400); Red Blood Count 4.42 M/mcL (3.82-4.97); Red Cell Distribution Width 14.1 % (11.5-14.5); Segmented Neutrophils % 62.9 %
[2018-08-11 05:46] LABS: BUN/Creatinine Ratio 15 (6-26); Blood Urea Nitrogen 13 mg/dL (8-23); Calcium 8.8 mg/dL (8.6-10.3); Carbon Dioxide 26 mEq/L (23-29); Chloride 105 mEq/L (98-107); Glucose 98 mg/dL (70-105); Magnesium 1.7 mg/dL (1.6-2.6); Osmolality,Calculated 286 (280-300); Phosphorous 2.1 mg/dL (2.7-4.5); Potassium 4.5 mEq/L (3.5-5.1); Sodium 138 mEq/L (136-145); eGFR For Non-African Americans > 60 (> 60)
[2018-08-11 06:37] VITALS: BP 143/67
[2018-08-11 06:42] LABS: Reactive Lymphocytes Present (Not Present)
[2018-08-11 06:43] LABS: Large Platelets Present (Not Present); Platelet Estimate Normal (Normal)
--- NOTE | 2018-08-11 10:13 | Discharge Summary ---
- NOTES TO OUTPATIENT PROVIDER Notes to Outpatient Provider: Follow-up with urology within 1-2 weeks of hospital discharge. Orders not resulted at time of discharge: Pending orders 08/06/18 12:45 Culture,Blood [BC] Stat Date of Encounter: 08/11/18 Time of Encounter: 10:10 - Discharge Diagnosis (1) Bacteremia Priority: Primary Status: Acute (2) UTI (urinary tract infection) Priority: Primary Status: Acute Qualifiers: Urinary tract infection type: site unspecified Qualified Code(s): N39.0 - Urinary tract infection, site not specified (3) Nephrolithiasis Priority: Primary Status: Acute (4) Hydronephrosis Priority: Primary Status: Acute Qualifiers: Hydronephrosis type: unspecified Qualified Code(s): N13.30 - Unspecified hydronephrosis (5) MATTHEW (acute kidney injury) Priority: Primary Status: Resolved (6) Hypokalemia Priority: Secondary Status: Resolved (7) Hypertension Priority: Secondary Status: Chronic Qualifiers: Hypertension type: essential hypertension Qualified Code(s): I10 - Essential (primary) hypertension Hospital course: Ms. James is a 82 year old female past medical history of hypertension who initially presented to [facility] after developing a left flank pain. CT scan of the abdomen and pelvis without contrast showed progressive severe left hydronephrosis consistent with UPJ obstruction and severe perinephric edema consistent with obstructive uropathy. 3 mm nonobstructing right renal stone was noted. Patient was subsequently transferred to [place] for urological evaluation. Patient admitted to the hospital due to obstructive uropathy, UTI, MATTHEW. Patient managed with broad spectrum IV antibiotics, valdez cultured. Urology consulted, patient underwent Cystoscopy, left retrograde program, left ureteral stent placement. Blood culture: grew valdez-sensitive E.coli. Patient has been afebrile for >48 hours, hemodynamically stable to be discharged home. Recommended to follow up with urology within 1-2 weeks of hospital discharge. Patient is being discharge on oral antibiotics to complete 14 days of treatment. - Time Spent with Patient Total time spent providing and/or coordinating discharge services: Time spent: Greater than 30 minutes (35) - Discharge Medications Prescriptions: New levoFLOXacin [Levofloxacin] 750 mg PO DAILY 8 Days #8 tablet Continue Multivitamin [Daily Multiple Vitamin] 1 each PO DAILY Calcium Carb, Cit/Magnesium Ox [Calmag Thins Tablet] 1 tab PO DAILY Lutein Extract/Zeaxanthin Ext [Lutein 15 mg Softgel] 2 cap PO DAILY Losartan/Hydrochlorothiazide [Hyzaar 100-12.5 Tablet] 1 tab PO DAILY Home Medications: Multivitamin [Daily Multiple Vitamin] 1 each PO DAILY 08/06/18 [History] Calcium Carb, Cit/Magnesium Ox [Calmag Thins Tablet] 1 tab PO DAILY 08/07/18 [History] Lutein Extract/Zeaxanthin Ext [Lutein 15 mg Softgel] 2 cap PO DAILY 08/07/18 [History] Losartan/Hydrochlorothiazide [Hyzaar 100-12.5 Tablet] 1 tab PO DAILY 08/08/18 [History] levoFLOXacin [Levofloxacin] 750 mg PO DAILY 8 Days #8 tablet 08/11/18 [Rx] Allergies/Adverse Reactions: Allergy/AdvReac Type Severity Reaction Status Date / Time Penicillins [PCN] Allergy Hives Verified 08/07/18 15:10 Date of admission: 08/06/18 01:36 Primary care physician: Lino Green Consults: 08/06/18 07:14 Consult to Urology [CONS] Routine Consulting Provider: Urology [facility]hell Reason for Consult: Hydronephrosis/nephrolithiasis Call Completed: Yes - Constitutional Vitals: Temp Pulse Resp BP Pulse Ox 99.0 F 70 14 143/67 91 08/11/18 06:35 08/11/18 06:35 08/11/18 06:35 08/11/18 06:35 08/11/18 06:35 Exam: Vitals: reviewed General: Alert and oriented x4. In no distress Cardiovascular: RRR, normal S1 & S2, no rubs, murmurs or gallops. Lungs: CTA b/l, no wheezes or crackles. Abdomen: Obese, soft, non-tender, no rigidity. Extremities: No deformity, no edema Neurological: Normal cognition Rest of the physical exam is non contributory - Patient Status Disposition: Home, Self-Care Condition: Good Functional capacity at discharge: independent ambulation Overall status at discharge: patient is back to baseline - Discharge Instructions Follow Up With: Lino Green DO [Primary Care Provider] - - Diet and Activity Activity: resume usual activities as tolerated Diet: low salt diet
== END 2018-08-11 13:05 | disposition home or self-care (01) | DRG 854 ==
LOC: 3ANU → SUATTDRO 08-06 01:36
PROVIDERS: ADMIT Internal Medicine; ATTEND Internal Medicine